=== PATIENT | male | born 1970 | race African-American/Black ===

== ENCOUNTER 2020-04-11 05:50 | Emergency (ER) | payer SELFPAY ==
[2020-04-11] MEDS ORDERED: TRUVADA1 TA1 PO (06:21)
[2020-04-11 06:32] LABS: HEMATOCRIT 35.6 % (39.0-50.0); HEMOGLOBIN 11.1 g/dl (14.0-18.0); IMMATURE GRANULOCYTES 0.2 % (0.0-5.0); MEAN CELL VOLUME 93.9 fL CALC (80.0-100.0); MEAN CORPUSCULAR HGB 29.3 pG CALC (26.0-32.0); MEAN CORPUSCULAR HGB CONC 31.2 g/dL CAL (32.0-36.0); NEUT# 1.96 thou/uL (1.82-7.42); RED BLOOD COUNT 3.79 mill/uL (4.70-6.10); RED CELL DISTRI WIDTH 15.1 % (11.5-15.5)
[2020-04-11 06:43] LABS: ANION GAP 9 (6-22 (CALC)); BUN 15 mg/dL (9-20); BUN/CREATININE RATIO 16 (12-20 (CALC)); CARBON DIOXIDE 26 mmol/l (22-30); CHLORIDE 105 mmol/l (95-108); CREATININE 0.9 mg/dL (0.7-1.3); GFR > 60 ML/MIN (>=60 (CALC)); GFR FOR AFR.AMER. > 60 ML/MIN (>=60 (CALC)); SODIUM 136 mmol/l (137-146)
[2020-04-11] MEDS ORDERED: ULTRAM50 M1 PO (07:21)
[2020-04-11] MEDS ORDERED: CEPHALEXIN500 MG PO (07:21)
[2020-04-11 07:30] VITALS: BP 119/86
== END 2020-04-11 07:35 | disposition home or self-care (01) | DRG 552 ==
LOC: ED 05:50
PROVIDERS: Family Medicine
DX: M47.812 Spondylosis without myelopathy or radiculopathy, cervical region (principal); I88.9 Nonspecific lymphadenitis, unspecified; F17.210 Nicotine dependence, cigarettes, uncomplicated

== ENCOUNTER 2021-07-28 11:13 | Emergency (ER) | payer SELFPAY ==
[~2021-07-28 11:13] MED LIST: CEPHALEXIN500 MG PO; TRUVADA1 TA1 PO; ULTRAM50 M1 PO
== END 2021-07-28 11:25 | disposition left against medical advice (07) | DRG 951 ==
LOC: ED 11:13 → LWOBS 11:24 → ED 11:25
DX: Z53.21 Procedure and treatment not carried out due to patient leaving prior to being seen by health care provider (principal)

== ENCOUNTER 2024-12-24 03:53 | Emergency (ER) | payer OTHER ==
[~2024-12-24] VITALS: Ht 180.3 cm; Wt 80.0 kg
[2024-12-24 04:02] VITALS: BP 128/92
[2024-12-24] MEDS ORDERED: ACETAMINOPHEN 500 MG TAB PO ONE (04:10)
[2024-12-24] MEDS ORDERED: DICLOFENAC SODIUM 75 MG/TAB PO ONE (04:10)
[2024-12-24 04:15] VITALS: BP 125/85
[2024-12-24 04:30] VITALS: BP 120/91
[2024-12-24 04:45] VITALS: BP 119/76
[2024-12-24] MEDS ORDERED: VOLTAREN - GENE75 MG PO (05:50)
== END 2024-12-24 06:00 | disposition home or self-care (01) | DRG 605 ==
LOC: ED 03:53
DX: S80.01XA Contusion of right knee, initial encounter (principal); S80.211A Abrasion, right knee, initial encounter; M47.812 Spondylosis without myelopathy or radiculopathy, cervical region; F17.200 Nicotine dependence, unspecified, uncomplicated; W22.8XXA Striking against or struck by other objects, initial encounter; Y99.0 Civilian activity done for income or pay